=== PATIENT | female | born 1955 | race Caucasian/White ===

== ENCOUNTER 2021-04-02 16:26 | Emergency (ER) | payer OTHER ==
[~2021-04-02] VITALS: Ht 142.2 cm; Wt 54.0 kg
[2021-04-02] MEDS ORDERED: IV NORMAL SALINE 1,000ML 1,000 ML IV SCH (17:00)
[2021-04-02] MEDS ORDERED: ONDANSETRON PF 4 MG/2 ML VIAL. IVP ONE ×2 (17:00→19:30)
--- NOTE | 2021-04-02 17:02 | PHYS DOC ---
Past History Additional Past Medical Histor: colitis (ISAIAS WHITLOCK APRN) Past Surgical History: Cholecystectomy, Hysterectomy (ISAIAS HWITLOCK APRN) General Adult EDM: Chief Complaint: NAUSEA/VOMITING/DIARRHEA HPI: HPI: Patient is a 66-year-old female who presents to the emergency department with nausea, vomiting, diarrhea and left upper quadrant pain that started 2 days ago. Patient reports that she has a history of colitis. She is had a cholecystectomy and a hysterectomy. Patient denies any blood in her stools or vomit, fevers, sick exposures, urinary symptoms. (ISAIAS WHITLOCK APRN) Review of Systems: Review of Systems: Constitutional: See HPI GI: See HPI : See HPI (ISAIAS WHITLOCK APRN) Current Medications: Current Meds: Current Medications Medications (Trade) Dose Ordered Sig/Zaynab Start Time Stop Time Status Last Admin Dose Admin Fentanyl Citrate (Fentanyl 2ml Vial) 50 mcg 1X ONCE 04/02/21 17:00 04/02/21 17:01 UNV Ondansetron HCl (Zofran) 4 mg 1X ONCE 04/02/21 17:00 04/02/21 17:01 UNV Sodium Chloride 1,000 ml @ 1,000 mls/hr Q1H 04/02/21 17:00 04/02/21 17:59 UNV (ISAIAS WHITLOCK APRN) Physical Exam: PE: Constitutional: Well developed, well nourished, no acute distress, non-toxic appearance. [] HENT: Normocephalic, atraumatic, bilateral external ears normal, oropharynx moist, no oral exudates, nose normal. [] Eyes: PERRL, EOMI, conjunctiva normal, no discharge. [] Neck: Normal range of motion, no stridor Cardiovascular:Heart rate regular rhythm, no murmur [] Lungs & Thorax: Bilateral breath sounds clear to auscultation [] Abdomen: Bowel sounds normal, soft, right upper and left upper quadrant tenderness with palpation worse on the left side, no rebound tenderness, no rigidity, no guarding, negative [place] sign, no masses, no pulsatile masses. [] Skin: Warm, dry, no erythema, no rash. [] Back: Normal range of motion Extremities: No tenderness, no cyanosis, no clubbing, ROM intact, no edema. [] Neurologic: Alert and oriented X 3, normal motor function, normal sensory functi on, no focal deficits noted. [] Psychologic: Affect normal, judgement normal, mood normal. [] (ISAIAS WHITLOCK APRN) Current Patient Data: Labs: Laboratory Tests Test 04/02/21 16:55 04/02/21 18:12 White Blood Count 8.2 x10^3/uL Red Blood Count 4.58 x10^6/uL Hemoglobin 15.4 g/dL Hematocrit 44.4 % Mean Corpuscular Volume 97 fL Mean Corpuscular Hemoglobin 34 pg Mean Corpuscular Hemoglobin Concent 35 g/dL Red Cell Distribution Width 13.6 % Platelet Count 298 x10^3/uL Neutrophils (%) (Auto) 73 % Lymphocytes (%) (Auto) 16 % Monocytes (%) (Auto) 11 % Eosinophils (%) (Auto) 0 % Basophils (%) (Auto) 0 % Neutrophils # (Auto) 6.0 x10^3uL Lymphocytes # (Auto) 1.3 x10^3/uL Monocytes # (Auto) 0.9 x10^3/uL Eosinophils # (Auto) 0.0 x10^3/uL Basophils # (Auto) 0.0 x10^3/uL Sodium Level 138 mmol/L Potassium Level 3.3 mmol/L Chloride Level 101 mmol/L Carbon Dioxide Level 27 mmol/L Anion Gap 10 Blood Urea Nitrogen 10 mg/dL Creatinine 0.6 mg/dL Estimated GFR (Cockcroft-Gault) 99.7 BUN/Creatinine Ratio 17 Glucose Level 139 mg/dL Calcium Level 9.0 mg/dL Total Bilirubin 0.5 mg/dL Aspartate Amino Transf (AST/SGOT) 29 U/L Alanine Aminotransferase (ALT/SGPT) 46 U/L Alkaline Phosphatase 82 U/L Total Protein 7.3 g/dL Albumin 3.6 g/dL Albumin/Globulin Ratio 1.0 Lipase 29 U/L Urine Collection Type Clean catch Urine Color Yellow Urine Clarity Clear Urine pH 7.5 Urine Specific [place] 1.015 Urine Protein Neg Urine Glucose (UA) Neg mg/dL Urine Ketones (Stick) Neg mg/dL Urine Blood Neg Urine Nitrite Neg Urine Bilirubin Neg Urine Urobilinogen Dipstick 0.2 mg/dL Urine Leukocyte Esterase Neg Urine RBC 0 /HPF Urine WBC 0 /HPF Urine Bacteria 0 /HPF Current Medications Medications (Trade) Dose Ordered Sig/Zaynab Route PRN Reason Start Time Stop Time Status Last Admin Dose Admin Sodium Chloride 1,000 ml @ 1,000 mls/hr Q1H IV 04/02/21 17:00 04/02/21 17:59 DC 04/02/21 17:06 Fentanyl Citrate (Fentanyl 2ml Vial) 50 mcg 1X ONCE IVP 04/02/21 17:00 04/02/21 17:53 DC 04/02/21 17:07 Ondansetron HCl (Zofran) 4 mg 1X ONCE IVP 04/02/21 17:00 04/02/21 17:53 DC 04/02/21 17:06 Iohexol (Omnipaque 300 Mg/ml) 75 ml 1X ONCE IV 04/02/21 18:00 04/02/21 18:01 DC 04/02/21 18:26 Potassium Chloride (Klor-Con) 20 meq 1X ONCE PO 04/02/21 19:15 04/02/21 19:16 UNV Vital Signs: Vital Signs Date Time Temp Pulse Resp B/P (MAP) Pulse Ox O2 Delivery O2 Flow Rate FiO2 04/02/21 16:43 97.6 88 26 163/94 (117) 97 (ISAIAS WHITLOCK APRN) EKG: EKG: [] (ISAIAS WHITLOCK APRN) Radiology/Procedures: Radiology/Procedures: []PROCEDURE: CT ABD PELV W/ IV CONTRST ONLY Exam: CT of abdomen and pelvis with contrast INDICATION: Abdominal pain, nausea vomiting diarrhea TECHNIQUE: Sequential axial images through the abdomen and pelvis obtained following the administration of 75 mm of Omni 300 IV contrast. Sagittal and coronal reformatted images were reconstructed from the axial data and reviewed. Exposure: One or more of the following in the visualized dose reduction techniques were utilized for this examination: 1. Automated exposure control 2. Adjustment of the MA and/or KV according to patient size 3. Use of iterative of reconstructive technique Comparisons: None FINDINGS: Heart size is normal. No pericardial effusion. Visualized lung bases are clear. No pleural effusion. Liver, spleen, pancreas and adrenals are unremarkable. Gallbladder surgically absent. No perinephric inflammation or hydronephrosis. No renal or ureteral calculi are identified. Bladder is partially distended and appears thin-walled. Uterus is absent. No abnormal adnexal mass. Large and small bowel are unremarkable. Appendix is normal. No free intra- abdominal air or fluid. No obstruction. Abdominal aorta has normal course and caliber. Abdominal vasculature is patent. No enlarged intra-abdominal lymph nodes are identified. No suspicious osseous lesions or acute fractures. IMPRESSION: No acute process identified within the abdomen or pelvis. Electronically signed by: Wei Wyatt MD (04/02/2021 6:44 PM) [facility] DICTATED AND SIGNED BY: WEI WYATT MD DATE: 04/02/211835 CC: ISAIAS WHITLOCK APRN; STARR SMITH MD ~MTH0 0 (ISAIAS WHITLOCK APRN) Heart Score: C/O Chest Pain: N/A Risk Factors: Risk Factors: DM, Current or recent (<one month) smoker, HTN, HLP, family history of CAD, obesity. Risk Scores: Score 0 - 3: 2.5% MACE over next 6 weeks - Discharge Home Score 4 - 6: 20.3% MACE over next 6 weeks - Admit for Clinical Observation Score 7 - 10: 72.7% MACE over next 6 weeks - Early Invasive Strategies (ISAIAS WHITLOCK APRN) Course & Med Decision Making: Course & Med Decision Making Pertinent Labs and Imaging studies reviewed. (See chart for details) [] Patient presents to the emergency department with a 2-day history of nausea, vomiting, diarrhea and left upper quadrant pain. Work-up in the ER consisted of blood work, urinalysis and imaging of abdomen and pelvis. Patient was noted to be hypokalemic and this was replaced in the emergency department. Unremarkable C BC, lipase, UA. CT abdomen and pelvis showed no acute findings. Patient's rapid influenza and Covid test is negative. Patient reports that her nausea has improved. She was given Zofran for nausea in the ER as well as pain medication. Patient's vital signs are stable she is in no acute distress. Patient advised to increase fluids. Educated on brat diet. I discussed with patient all findings and diagnostic testing as well as the need to follow-up with PCP for further evaluation and treatment or return to the ER if any new or worsening symptoms. Strict return precautions were also discussed at length. Patient voiced understanding and agreement with the plan. Patient is hemodynamically stable at the time of disposition. (ISAIAS WHITLOCK APRN) Dragon Disclaimer: Dragon Disclaimer: This electronic medical record was generated, in whole or in part, using a voice recognition dictation system. (ISAIAS WHITLOCK APRN) Departure Departure: Impression: Primary Impression: Nausea & vomiting Qualified Codes: R11.2 - Nausea with vomiting, unspecified Disposition: HOME / SELF CARE / HOMELESS Condition: GOOD Referrals: STARR SMITH MD (PCP) Patient Instructions: Nausea and Vomiting Additional Instructions: You were seen in the emergency department for nausea, vomiting, diarrhea and abdominal pain. Your blood work was mostly unremarkable. However, you were noted to have a low potassium likely due to your nausea, vomiting and diarrhea. This was replaced in the emergency department. Please make sure when you return from your eating potassium rich foods like green leafy vegetables and bananas. CT scan of your abdomen and pelvis did not show any acute findings. And your urinalysis did not show any infection. Your rapid Covid and influenza test was negative. You are being discharged home with nausea medication, take t his as needed. Increase your fluids. Today I would stick to clear liquid diet which includes broths, Gatorade, Jell-O's. Following that I would stick to a brat diet which includes bananas, rice, applesauce and toast. Try to eat a bland diet and avoid any spicy, greasy or fatty foods over the next 24 to 48 hours. Follow-up with your primary care provider tomorrow regarding your ER visit. Return to the emergency department if you develop worsening of your abdominal pain, intractable nausea or vomiting, high fevers refractory to treatment, blood in your stools or vomit or any new or worsening concerns. Scripts Ondansetron (ONDANSETRON ODT) 4 Mg Tab.rapdis 1 TAB PO PRN Q6-8HRS for nausea for 7 Days, #28 TAB 0 Refills Prov: KAMLESHISAIAS Solo APRN 04/02/21 Dragon Disclaimer This chart was dictated in whole or in part using Voice Recognition software in a busy, high-work load, and often noisy Emergency Department environment. It may contain unintended and wholly unrecognized errors or omissions. (REDD AMRTINEZ MD) Attending Signature Attending Signature I have participated in the care of this patient and I have reviewed and agree with all pertinent clinical information above including history, exam, and recommendations. (REDD MARTINEZ MD) ISAIAS WHITLOCK APRN Apr 02, 2021 17:02 REDD MARTINEZ MD Apr 04, 2021 20:16
[2021-04-02 17:27] LABS: BASO % 0 % (0-3); EOS % 0 % (0-3); HEMATOCRIT 44.4 % (36.0-47.0); HEMOGLOBIN 15.4 g/dL (12.0-15.5); LYMPH # 1.3 x10^3/uL (1.0-4.8); LYMPH % 16 % (24-48); MEAN CORPUSCULAR HEMOGLOBIN 34 pg (25-35); MEAN CORPUSCULAR HGB CONC 35 g/dL (31-37); MEAN CORPUSCULAR VOLUME 97 fL (79-100); MONO # 0.9 x10^3/uL (0.0-1.1); MONO % 11 % (0-9); NEUT % 73 % (31-73); PLATELET COUNT 298 x10^3/uL (140-400); RED BLOOD COUNT 4.58 x10^6/uL (3.50-5.40); RED CELL DISTRIBUTION WIDTH 13.6 % (11.5-14.5); WHITE BLOOD COUNT 8.2 x10^3/uL (4.0-11.0)
[2021-04-02 17:38] LABS: CREATININE 0.6 mg/dL (0.6-1.0); GFR 99.7; POTASSIUM 3.3 mmol/L (3.5-5.1)
[2021-04-02 17:52] LABS: ALBUMIN 3.6 g/dL (3.4-5.0); TOTAL BILIRUBIN 0.5 mg/dL (0.2-1.0); TOTAL PROTEIN 7.3 g/dL (6.4-8.2)
[2021-04-02] MEDS ORDERED: IOHEXOL 300 MG/ML 75 ML VIAL. IV ONE (18:00)
--- NOTE | 2021-04-02 18:47 | RAD ---
Exam: CT of abdomen and pelvis with contrast INDICATION: Abdominal pain, nausea vomiting diarrhea TECHNIQUE: Sequential axial images through the abdomen and pelvis obtained following the administrati on of 75 mm of Omni 300 IV contrast. Sagittal and coronal reformatted images were reconstructed from the axial data and reviewed. Exposure: One or more of the following in the visualized dose reduction techniques were utilized for this examination: 1. Automated exposure control 2. Adjustment of the MA and/or KV according to patient size 3. Use of iterative of reconstructive technique Comparisons: None FINDINGS: Heart size is normal. No pericardial effusion. Visualized lung bases are clear. No pleural effusion. Liver, spleen, pancreas and adrenals are unremarkable. Gallbladder surgically absent. No perinephric inflammation or hydronephrosis. No renal or ureteral calculi are identified. Bladder is partially distended and appears thin-walled. Uterus is absent. No abnormal adnexal mass. Large and small bowel are unremarkable. Appendix is normal. No free intra-abdominal air or fluid. No obstruction. Abdominal aorta has normal course and caliber. Abdominal vasculature is patent. No enlarged intra-abdominal lymph nodes are identified. No suspicious osseous lesions or acute fractures. IMPRESSION: No acute process identified within the abdomen or pelvis. Electronically signed by: Wei Cervantes MD (04/02/2021 6:44 PM) [facility]
[2021-04-02 19:01] LABS: BACTERIA,URINE 0 /HPF (0-FEW); BILIRUBIN,URINE NEG (NEG); CLARITY,URINE CLEAR; COLOR,URINE YELLOW; GLUCOSE,URINE NEG (NEG); NITRITE,URINE NEG (NEG); RBC,URINE 0 /HPF (0-2); UROBILINOGEN,URINE 0.2 mg/dL (0.2 mg/dL); WBC,URINE 0 /HPF (0-4)
[2021-04-02] MEDS ORDERED: ONDA4TAB12 PO (19:12)
[2021-04-02] MEDS ORDERED: ONDANSETRON 4MG ODT 4TABLET STARTPACK. PO ONE (19:15)
[2021-04-02] MEDS ORDERED: POTASSIUM CHLORIDE 20 MEQ TABLET.ER. PO ONE (19:15)
[2021-04-02 19:45] LABS: INFLUENZA A PATIENT NEGATIVE (NEGATIVE); INFLUENZA B PATIENT NEGATIVE (NEGATIVE)
[2021-04-02] MEDS ORDERED: PROCHLORPERAZINE 10 MG/2 ML VIAL. IV ONE (20:30)
[2021-04-02] MEDS ORDERED: KETOROLAC 30 MG/ML VIAL. IVP ONE (20:30)
[2021-04-02] MEDS ORDERED: ACETAMINOPHEN/CODEINE 300/30MG 4TABLET STARTPACK. PO ONE (21:30)
[2021-04-02 21:49] VITALS: BP 164/90
== END 2021-04-02 21:50 | disposition home or self-care (01) ==
LOC: ER 16:26
DX: R11.2 Nausea with vomiting, unspecified (principal); R19.7 Diarrhea, unspecified; R10.12 Left upper quadrant pain; Z20.822 Contact with and (suspected) exposure to COVID-19; Z90.49 Acquired absence of other specified parts of digestive tract; Z90.710 Acquired absence of both cervix and uterus
CPT/HCPCS: 36415; 74177; 80053; 81001; 83690; 85025; 87428; 96361; 96374; 96375; 96376; 99285; J0780; J1885; J2405; J3010; J7030; Q0162; Q9967

== ENCOUNTER 2021-04-29 15:12 | Emergency (ER) | payer OTHER ==
[~2021-04-29] VITALS: Ht 142.2 cm; Wt 54.0 kg
[~2021-04-29 15:12] MED LIST: ONDA4TAB12 PO
[2021-04-29] MEDS ORDERED: MORPHINE SULFATE 4 MG/ML DISP.SYRIN. IV ONE (16:00)
[2021-04-29] MEDS ORDERED: ONDANSETRON PF 4 MG/2 ML VIAL. IVP ONE (16:00)
--- NOTE | 2021-04-29 16:07 | PHYS DOC ---
Past History Additional Past Medical Histor: colitis Past Surgical History: Cholecystectomy, Hysterectomy Alcohol Use: Occasionally General Adult EDM: Chief Complaint: SHOULDER INJURY HPI: HPI: 66-year-old female presents with right shoulder pain. The patient was walking on the slippery surface outside because it is snowing. She slipped and fell onto her right shoulder. She has a history of osteoporosis. She feels like the arm is low in forward. She is concerned about fracture versus dislocation. She denies any other injuries at this time. Review of Systems: Review of Systems: Constitutional: Denies fever or chills Eyes: Denies change in visual acuity HENT: Denies nasal congestion or sore throat Respiratory: Denies cough or shortness of breath Cardiovascular: Denies chest pain or edema GI: Denies abdominal pain, nausea, vomiting, bloody stools or diarrhea : Denies dysuria Musculoskeletal: Right shoulder pain Integument: Denies rash Neurologic: Denies headache, focal weakness or sensory changes Endocrine: Denies polyuria or polydipsia Lymphatic: Denies swollen glands Psychiatric: Denies depression or anxiety Current Medications: Current Meds: Current Medications Medications (Trade) Dose Ordered Sig/Zaynab Start Time Stop Time Status Last Admin Dose Admin Morphine Sulfate (Morphine 4mg Syringe) 4 mg 1X ONCE 04/29/21 16:00 04/29/21 16:01 DC 04/29/21 16:02 4 MG Ondansetron HCl (Zofran) 4 mg 1X ONCE 04/29/21 16:00 04/29/21 16:01 DC 04/29/21 16:02 4 MG Allergies: Allergies: Allergies Coded Allergies Type Severity Reaction Last Updated Verified No Known Drug Allergies 04/02/21 No Physical Exam: PE: Constitutional: Well developed, well nourished, no acute distress, non-toxic appearance. [] HENT: Normocephalic, atraumatic, bilateral external ears normal, oropharynx moist, no oral exudates, nose normal. [] Eyes: PERRLA, EOMI, conjunctiva normal, no discharge. [] Neck: Normal range of motion, no tenderness, supple, no stridor. [] Cardiovascular:Heart rate regular rhythm, no murmur [] Lungs & Thorax: Bilateral breath sounds clear to auscultation [] Abdomen: Bowel sounds normal, soft, no tenderness, no masses, no pulsatile masses. [] Skin: Warm, dry, no erythema, no rash. [] Back: No tenderness, no CVA tenderness. [] Extremities: Deformity of the right shoulder, anterior and inferior. Skin intact. [] Neurologic: Alert and oriented X 3, normal motor function, normal sensory function, no focal deficits noted. [] Psychologic: Affect normal, judgement normal, mood normal. [] Current Patient Data: Vital Signs: Vital Signs Date Time Temp Pulse Resp B/P (MAP) Pulse Ox O2 Delivery O2 Flow Rate FiO2 04/29/21 16:02 24 99 04/29/21 15:15 97.9 86 162/95 (117) EKG: EKG: [] Radiology/Procedures: Radiology/Procedures: [] Impressions: Left shoulder 3 views. HISTORY: Left shoulder pain after a fall 3 views were taken the left shoulder. There is a comminuted fracture the proximal humerus. The greater tuberosity is an isolated fragment. IMPRESSION: 1. Comminuted fracture proximal right humerus. Electronically signed by: Nain Ortiz MD (04/29/2021 4:25 PM) [id number] DICTATED AND SIGNED BY: NAIN ORTIZ MD DATE: 04/29/211622 CC: JESSICA MANZANO DO; STARR SMITH MD ~MTH0 0 XR CHEST 1V History: Reason: shoulder fracture / Spl. Instructions: / History: Pain Comparison: September 18, 2008. Findings: Mild ill-defined mid and bibasilar opacities. No pleural effusion. No pneumothorax. Normal heart size. Calcified upper lung pulmonary nodules, likely prior granulomatous disease, unchanged. Acute comminuted right proximal humerus fracture or characterize and dedicated shoulder radiograph. Impression: 1. Mild ill-defined bibasilar opacities, may represent atelectasis or developing infiltrates. If persistent clinical concern, recommend follow-up. 2. Acute comminuted right proximal humerus fracture. Electronically signed by: Pavan Cortez DO (04/29/2021 4:25 PM) [facility] DICTATED AND SIGNED BY: PAVAN CORTEZ DO DATE: 04/29/211622 CC: JESSICA MANZANO DO; STARR SMITH MD ~MTH0 0 Heart Score: C/O Chest Pain: N/A Risk Factors: Risk Factors: DM, Current or recent (<one month) smoker, HTN, HLP, family history of CAD, obesity. Risk Scores: Score 0 - 3: 2.5% MACE over next 6 weeks - Discharge Home Score 4 - 6: 20.3% MACE over next 6 weeks - Admit for Clinical Observation Score 7 - 10: 72.7% MACE over next 6 weeks - Early Invasive Strategies Course & Med Decision Making: Course & Med Decision Making Pertinent Labs and Imaging studies reviewed. (See chart for details) Patient has a comminuted proximal left humerus. We will place her and shoulder immobilizer and have her follow-up with orthopedics to consider surgery. The patient has had fentanyl and morphine for pain. I will give her [place] 7.5/325 in the ER and discharge her with the same. She is stable for discharge at this time. [] Rylee Disclaimer: Rylee Disclaimer: This electronic medical record was generated, in whole or in part, using a voice recognition dictation system. Departure Departure: Impression: Primary Impression: Comminuted right humeral fracture Disposition: HOME / SELF CARE / HOMELESS Condition: STABLE Referrals: STARR SMITH MD (PCP) Patient Instructions: Shoulder Fracture Scripts Hydrocodone/Acetaminophen (Hydrocodone-Acetamin 7.5-325) 1 Each Tablet 1 EACH PO Q6HRS PRN for PAIN, #15 TAB Prov: JESSICA MANZANO DO 04/29/21 JESSICA MANZANO DO Apr 29, 2021 16:07
--- NOTE | 2021-04-29 16:27 | RAD ---
Left shoulder 3 views. HISTORY: Left shoulder pain after a fall 3 views were taken the left shoulder. There is a comminuted fracture the proximal humerus. The greate r tuberosity is an isolated fragment. IMPRESSION: 1. Comminuted fracture proximal right humerus. Electronically signed by: Nain Ortiz MD (04/29/2021 4:25 PM) [id number]
--- NOTE | 2021-04-29 16:28 | RAD ---
XR CHEST 1V History: Reason: shoulder fracture / Spl. Instructions: / History: Pain Comparison: September 18, 2008. Findings: Mild ill-defined mid and bibasilar opacities. No pleural effusion. No pneumothorax. Normal heart size . Calcified upper lung pulmonary nodules, likely prior granulomatous disease, unchanged. Acute comminuted right proximal humerus fracture or characterize and dedicated shoulder radiograph. Impression: 1. Mild ill-defined bibasilar opacities, may represent atelectasis or developing infiltrates. If per sistent clinical concern, recommend follow-up. 2. Acute comminuted right proximal humerus fracture. Electronically signed by: Pavan Cortez DO (04/29/2021 4:25 PM) [facility]
[2021-04-29] MEDS ORDERED: HYDR-2763 PO (16:42)
[2021-04-29] MEDS ORDERED: HYDROcodone/APAP 7.5/325MG 1 TAB TABLET PO ONE (16:45)
== END 2021-04-29 17:50 | disposition home or self-care (01) ==
LOC: ER 15:12
DX: S42.201A Unspecified fracture of upper end of right humerus, initial encounter for closed fracture (principal); W01.0XXA Fall on same level from slipping, tripping and stumbling without subsequent striking against object, initial encounter; Y93.01 Activity, walking, marching and hiking; Y92.89 Other specified places as the place of occurrence of the external cause; Y99.8 Other external cause status
CPT/HCPCS: 29105; 71045; 73030; 96374; 96375; 99284; J2270; J2405